=== PATIENT | male | born 1995 | race African-American/Black ===

== ENCOUNTER 2017-12-17 11:14 | Emergency (ER) | payer OTHER ==
[~2017-12-17] VITALS: Ht 193 cm; Wt 79.4 kg
--- NOTE | 2017-12-17 12:05 | Emergency Room Report ---
History of Present Illness General Chief Complaint: Lower Extremity Injury Source: Patient (Roberto Dorado) Present Illness HPI 22-year-old male patient presents ER complaining of left knee pain x1 day. reports that his playing basketball yesterday when he was bumped and suddenly felt his left leg stiffen. Denies feeling or hearing popped. Reports pain with ambulation. Denies hitting his head or lost consciousness. Reports was able to drive to ER. Reports walking with crutches. Reports taking ibuprofen 100 mg relief of pain symptoms. Reports swelling of left knee. Denies other acute symptoms. reports pain worse with leg straightening. (Roberto Dorado) Allergies: Coded Allergies: No Known Allergies (Unverified , 12/17/17) Patient History Past Medical History: see triage record Reviewed Nursing Documentation: PMH: Agreed; PSxH: Agreed (Roberto Dorado) Nursing Documentation-PMH Past Medical History: No Stated History (Roberto Dorado) Review of Systems All Other Systems: negative except mentioned in HPI (Roberto Dorado) Physical Exam Vital Signs Date Time Temp Pulse Resp B/P (MAP) Pulse Ox O2 Delivery O2 Flow Rate FiO2 12/17/17 11:16 97.6 63 18 136/89 97 Room Air 97.5 Sp02 EP Interpretation: reviewed, normal General Appearance: well appearing, no apparent distress, alert, GCS 15, non- toxic Head: normocephalic, atraumatic Eyes: bilateral eye normal inspection, bilateral eye PERRL ENT: hearing grossly normal, normal pharynx, no angioedema, normal voice, uvula midline, moist mucus membranes Neck: full range of motion Respiratory: lungs clear, normal breath sounds, no rhonchi, no respiratory distress, no accessory muscle use, no wheezing, speaking full sentences Cardiovascular #1: regular rate, rhythm, no edema Musculoskeletal: back normal, digits/nails normal, gait/station normal, normal range of motion, non-tender, swelling - left knee, other - negative anterior and posterior drawer, no laxity with varus or valgus stress, tender - left knee (Roberto Dorado) Medical Decision Making PA Attestation Dr. Love is my supervising Physician whom patient management has been discussed with. 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 presents to the ED c/o left knee pain. Ddx considered but are not limited to fracture, sprain, strain, contusion, dislocation. No erythema, no warmth to touch, no fever, nontoxic appearing, low suspicion for septic joint. Vital signs: are WNL, pt. is afebrile Ordered X-ray and pain medication. ER COURSE Provided with pain medication. An X-ray of the left knee shows mild soft tissue swelling, no acute fracture, Hayley-Schlatter per the preliminary reading. Discussed findings with patient, informed patient may be related to Hayley-Schlatter, patient reports known history of disease. Needs outpatient imaging and followup. LUIS FELIPE wrap was applied to the left was checked afterwards by me showing good alignment and support with distal neurovascular functioning intact. Patient has crutches does not need them provided. Patient instructed on RICE method: rest, ice, compression, elevation. Swelling likely causing pain, followup with PCP and ortho to discuss drainage at that time as needed. No erythema, no warmth to touch, patient nontoxic appearing, low suspicion for septic joint. Patient instructed on rest, ice and heat. Patient instructed to be WBAT Followup with primary care provider. Discuss referral to ortho/pain management/ PT as needed. Discuss further imaging with MRI/CT as needed. Provided with contact information for orthopedic urgent care if unable to be seen by PCP and get ortho referral. DISCHARGE: -Rx provided for Ibuprofen for pain symptoms. At this time pt. is stable for d/c to home. Patient is resting comfortably, in no acute distress, nontoxic appearing, talking without difficulty. Will provide printed patient care instructions, and any necessary prescriptions. Patient instructed to follow with primary care provider in 3 - 5 days and to request further follow-up as needed. Care plan and follow up instructions have been discussed with the patient prior to discharge. Take medications as directed. Patient questions asked and answered. Patient reports understanding and agreement to treatment plan. ER precautions given, patient instructed to return to ER immediately for any new or worsening of symptoms. - Please note that this Emergency Department Report was dictated using [employer]ozynelumber loader technology software, occasionally this can lead to erroneous entry secondary to interpretation by the dictation equipment. (Roberto Dorado) Other X-Ray Diagnostic Results Other X-Ray Diagnostic Results : X-Ray ordered: left knee # of Views/Limited Vs Complete: 3 View Indication: Pain EP Interpretation: Yes PA Xray: Interpretation reviewed, by supervising MD, and agrees with findings. Interpretation: no dislocation, no fractures, nonspecific bowel gas, other - soft tissue swelling; Hayley-schlatter Impression: Other - effusion PA Scribe Text Dexter Dorado PA-C (Roberto Dorado) Other X-Ray Diagnostic Results : Electronically Signed by: Scribe documentation reviewed by me and is accurate, Dusty Love MD. (Dusty Love M.D.) Last Vital Signs Date Time Temp Pulse Resp B/P (MAP) Pulse Ox O2 Delivery O2 Flow Rate FiO2 12/17/17 11:16 97.6 63 18 136/89 97 Room Air 97.5 (Roberto Dorado) Disposition: HOME, SELF-CARE Condition: Stable Scripts Ibuprofen* (MOTRIN*) 800 Mg Tablet 800 MG ORAL Q8H, #30 TAB 0 Refills Prov: Roberto Dorado 12/17/17 Patient Instructions: Knee Effusion, [id number] Additional Instructions: Patient instructed to follow up with primary care provider and discuss further referral to orthopedics and physical therapy. Patient instructed on RICE method: rest, ice, compression, elevation. Patient instructed to WBAT. Take medications as directed. Patient questions asked and answered. ER precautions given, patient instructed to return to ER immediately for any new or worsening of symptoms. Roberto Dorado Dec 17, 2017 12:05 Dusty Love M.D. Dec 18, 2017 01:04
[2017-12-17] MEDS ORDERED: Ketorolac 30mg Inj IM ONE (12:15)
[2017-12-17] MEDS ORDERED: IBUPROFEN800 MG ORAL (12:40)
[2017-12-17 12:45] VITALS: BP 132/85
--- NOTE | 2017-12-17 13:28 | Diagnostic Imaging Report ---
Indication: Pain Technique: XRAY Knee 3v LT Comparison: None Findings: There is no acute fracture or dislocation. Some well-corticated ossific densities project adjacent to the tibial tubercle along the patellar tendon insertion. There may be some patellar tendon thickening. Alignment and joint spaces are preserved. No radiopaque foreign body identified. No suprapatellar joint effusion. Impression: No acute fracture. Possible sequela of remote Hayley-Schlatter disease. If there is continued pain, consider nonemergent MRI of the knee as clinically indicated.
== END 2017-12-17 12:45 | disposition home or self-care (01) ==
LOC: EMR 12:25
DX: M25.462 Effusion, left knee (principal); M92.52 Juvenile osteochondrosis of tibia tubercle
CPT/HCPCS: 10060; 73562; 99284; J1885

== ENCOUNTER 2017-12-19 22:03 | Emergency (ER) | payer OTHER ==
[~2017-12-19] VITALS: Ht 193 cm; Wt 79.4 kg
[~2017-12-19 22:03] MED LIST: IBUPROFEN800 MG ORAL
[2017-12-19] MEDS ORDERED: NKM (22:17)
--- NOTE | 2017-12-19 22:39 | Emergency Room Report ---
History of Present Illness General Chief Complaint: Skin Rash/Abscess Source: Patient Present Illness HPI Patient presents with 3 days of swelling and pain in his right anterior thigh. He's had an abscess in the past. He feels this might need to be drained. He denies any fevers or chills. He's taking Motrin at home with some help. Pain rated 6/10, sharp and pressure with some aching. No radiation. Constant. He injured his L knee and was evaluated recently. Scheduled for MRI. H/O Brooten Rubin. No other co-morbidities. 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 Nursing Documentation: PMH: Agreed; PSxH: Agreed Nursing Documentation-PMH Past Medical History: No Stated History Review of Systems Constitutional: Reports: see HPI Musculoskeletal: Reports: see HPI Skin: Reports: see HPI Physical Exam Vital Signs Date Time Temp Pulse Resp B/P (MAP) Pulse Ox O2 Delivery O2 Flow Rate FiO2 12/19/17 22:12 98.2 58 16 121/81 98 Room Air 98.2 Sp02 EP Interpretation: reviewed, normal General Appearance: well appearing, no apparent distress, GCS 15 Head: normocephalic, atraumatic Eyes: bilateral eye normal inspection, bilateral eye PERRL ENT: hearing grossly normal, normal voice, moist mucus membranes Neck: full range of motion, supple Respiratory: no respiratory distress, speaking full sentences Cardiovascular #1: regular rate, rhythm, no edema Cardiovascular #2: 2+ radial (R) Gastrointestinal: normal inspection, scaphoid Musculoskeletal: other - elvi appliance R knee - crutches Neurologic: alert, normal gait, grossly normal Psychiatric: mood/affect normal Skin: other - Abscess right anterior thigh Procedures Incision and Drainage Incision and Drainage : Consent: Verbal Blade Size: 11 I & D Procedure: betadine prep, sterile drapes applied, sterile dressing applied, gauze wick placed Wound Location: lower extremity - L anterior thigh Wound's Depth, Shape: superficial Wound Length (cm): 1 Wound Explored: contaminated - pus expressed Irrigated w/ Saline (ccs): 10 Anesthesia: Lidocaine w/ Epi Patient Tolerated: Well Complications: None Medical Decision Making Diagnostic Impression: Primary Impression: Abscess ER Course Patient presents with an abscess of right anterior thigh. This needs to be incised and drained. In addition to that he needs oral antibiotics. I and D performed and tolerated well. Patient stable for outpatient observation and treatment. Last Vital Signs Date Time Temp Pulse Resp B/P (MAP) Pulse Ox O2 Delivery O2 Flow Rate FiO2 12/19/17 23:16 98.2 16 121/81 98 Room Air 98.2 12/19/17 23:15 61 Status: improved Disposition: HOME, SELF-CARE Condition: Improved Scripts Tramadol Hcl* (ULTRAM*) 50 Mg Tablet 50 MG ORAL Q6H PRN for For Pain, #8 TAB 0 Refills Prov: Dusty Love M.D. 12/19/17 Bacitracin (Bacitracin) 28.4 Gm Oint...g. 1 APPLIC TOPIC BID, #20 GM Prov: Dusty Love M.D. 12/19/17 Trimethoprim/Sulfamethoxazole 160/800* (BACTRIM DS TABLET*) 1 Each Tablet 1 TAB ORAL Q12H, #14 TAB 0 Refills Prov: Dusty Love M.D. 12/19/17 Dusty Love M.D. Dec 19, 2017 22:39
[2017-12-19] MEDS ORDERED: Bactrim-DS 1 tab ORAL ONE (22:45)
[2017-12-19] MEDS ORDERED: Lidocaine 1% 10mg/ml/Epi 0.005mg/ml 30ml vial INJ ONE (22:45)
[2017-12-19] MEDS ORDERED: BACITRACIN15 GM TOPIC (23:13)
[2017-12-19] MEDS ORDERED: BACTRIM DS TAB1 EAC1 ORAL (23:13)
[2017-12-19] MEDS ORDERED: TRAMADOL HCL50 MG ORAL (23:13)
[2017-12-19 23:15] VITALS: BP 122/82
[2017-12-19 23:16] VITALS: BP 121/81
== END 2017-12-19 23:15 | disposition home or self-care (01) ==
LOC: EMR 22:46
DX: L02.415 Cutaneous abscess of right lower limb (principal)
CPT/HCPCS: 10060; 99284

== ENCOUNTER 2018-10-01 03:33 | Emergency (ER) | payer OTHER ==
[~2018-10-01] VITALS: Ht 193 cm; Wt 79.4 kg
[~2018-10-01 03:33] MED LIST changes: +BACITRACIN15 GM TOPIC; +BACTRIM DS TAB1 EAC1 ORAL; +NKM; +TRAMADOL HCL50 MG ORAL
[2018-10-01 03:51] VITALS: BP 120/74
[2018-10-01] MEDS ORDERED: IBUPROFEN600 MG ORAL (03:59)
--- NOTE | 2018-10-01 03:59 | Emergency Room Report ---
History of Present Illness General Chief Complaint: Upper Extremity Injury Source: Patient Present Illness HPI Is a 23-year-old male who is right-hand dominant. He presents with chief complaint of right forearm pain and numbness. He was playing basketball and fell directly into that area. He felt numbness initially. Numbness is improving but he still felt some pain and and weakness. Worse with palpation. No nausea no vomiting. No other injury. Did not hit his head. Allergies: Coded Allergies: No Known Allergies (Unverified , 12/17/17) Patient History Past Medical History: see triage record, old chart reviewed Past Surgical History: none Pertinent Family History: none Social History: Denies: smoking Immunizations: other Reviewed Nursing Documentation: PMH: Agreed; PSxH: Agreed Nursing Documentation-PMH Past Medical History: No Stated History Hx Cardiac Problems: No - torn Meniscus Review of Systems Eye: Denies: eye pain, blurred vision ENT: Denies: ear pain, nose congestion, throat swelling Respiratory: Denies: cough, shortness of breath Cardiovascular: Denies: chest pain, palpitations Gastrointestinal: Denies: abdominal pain, diarrhea, nausea, vomiting Musculoskeletal: Reports: muscle pain, muscle stiffness; Denies: back pain, joint pain Skin: Denies: rash Neurological: Denies: headache, numbness Endocrine: Denies: increased thirst, increased urine Hematologic/Lymphatic: Denies: easy bruising All Other Systems: negative except mentioned in HPI Physical Exam Vital Signs Date Time Temp Pulse Resp B/P (MAP) Pulse Ox O2 Delivery O2 Flow Rate FiO2 10/01/18 03:43 98.2 81 18 120/74 95 Room Air vitals normal Sp02 EP Interpretation: reviewed, normal General Appearance: well appearing, no apparent distress, alert Head: normocephalic, atraumatic Eyes: bilateral eye PERRL, bilateral eye EOMI ENT: hearing grossly normal, normal pharynx Neck: full range of motion, supple, no meningismus Respiratory: chest non-tender, lungs clear, normal breath sounds Cardiovascular #1: regular rate, rhythm, no murmur Gastrointestinal: normal bowel sounds, non tender, no mass, no organomegaly, no bruit, non-distended Musculoskeletal: back normal, gait/station normal, normal range of motion, other - Right forearm: He has tenderness to the proximal forearm on the dorsal aspect near the elbow. Full range of motion. Sensation normal. Neurologic: alert, oriented x3 Psychiatric: mood/affect normal Skin: warm/dry Medical Decision Making Diagnostic Impression: Primary Impression: Contusion of left forearm, initial encounter ER Course Patient with right forearm contusion. No fracture dislocation. We'll discharge home. Other X-Ray Diagnostic Results Other X-Ray Diagnostic Results : X-Ray ordered: Right forearm x-rays # of Views/Limited Vs Complete: 2 View Indication: Pain EP Interpretation: Yes Interpretation: no dislocation, no soft tissue swelling, no fractures Impression: No acute disease Electronically Signed by: Poncho Medina MD Last Vital Signs Date Time Temp Pulse Resp B/P (MAP) Pulse Ox O2 Delivery O2 Flow Rate FiO2 10/01/18 03:51 98.2 18 120/74 95 Room Air 10/01/18 03:43 81 Status: improved Disposition: HOME, SELF-CARE Condition: Stable Scripts Ibuprofen* (MOTRIN*) 600 Mg Tablet 600 MG ORAL THREE TIMES A DAY, #30 TAB 0 Refills Prov: Poncho Medina MD 10/01/18 Additional Instructions: Follow-up with your doctor in 7 days. Return if symptom worsen. Poncho Medina MD Oct 01, 2018 03:59
[2018-10-01 04:19] VITALS: BP 120/74
--- NOTE | 2018-10-01 04:46 | Diagnostic Imaging Report ---
EXAM: XR Right Forearm, 2 Views CLINICAL HISTORY: TRAUMA TECHNIQUE: Frontal and lateral views of the right forearm. COMPARISON: No relevant prior studies available. FINDINGS: Bones/joints: Unremarkable. No acute fracture. No dislocation. Soft tissues: Unremarkable. IMPRESSION: No acute fracture.
== END 2018-10-01 04:20 | disposition home or self-care (01) ==
LOC: EMR 04:10
DX: S50.11XA Contusion of right forearm, initial encounter (principal); W19.XXXA Unspecified fall, initial encounter; Y93.67 Activity, basketball; Y92.9 Unspecified place or not applicable
CPT/HCPCS: 99283

== ENCOUNTER 2018-10-14 15:40 | Emergency (ER) | payer OTHER ==
[~2018-10-14] VITALS: Ht 193 cm; Wt 77.1 kg
[~2018-10-14 15:40] MED LIST changes: +IBUPROFEN600 MG ORAL
[2018-10-14] MEDS ORDERED: NKM (15:46)
[2018-10-14 15:49] VITALS: BP 119/78
[2018-10-14] MEDS ORDERED: Lidocaine 1% MPF 10mg/ml 5ml ONE (16:12)
[2018-10-14] MEDS ORDERED: Lidocaine 2% 20mg/ml/Epi 0.005mg/ml 20ml vial INJ ONE (16:15)
--- NOTE | 2018-10-14 16:22 | Emergency Room Report ---
History of Present Illness General Chief Complaint: Skin Rash/Abscess Source: Medical Record Present Illness HPI 20-year-old male presents to the emergency department complaining of 3 out of 10 in severity pain, swelling, erythema and palpable lump in the left groin area progressive 2 days. Patient denies fevers or chills he denies on tender lymph nodes, penile discharge, testicular pain or swelling. Patient denies history of STI's. Denies recent travel, recent illness or ill contacts. denies blisters, oral lesions, or sloughing of the skin. Allergies: Coded Allergies: No Known Allergies (Unverified , 12/17/17) Patient History Past Medical History: see triage record Past Surgical History: none Pertinent Family History: none Reviewed Nursing Documentation: PMH: Agreed; PSxH: Agreed Nursing Documentation-PMH Past Medical History: No History, Except For Hx Cardiac Problems: No - torn Meniscus Review of Systems All Other Systems: negative except mentioned in HPI Physical Exam Vital Signs Date Time Temp Pulse Resp B/P (MAP) Pulse Ox O2 Delivery O2 Flow Rate FiO2 10/14/18 15:44 98.1 72 18 98 Room Air 10/14/18 15:49 119/78 Sp02 EP Interpretation: reviewed, normal General Appearance: no apparent distress, alert, GCS 15, non-toxic Head: normocephalic, atraumatic Eyes: bilateral eye normal inspection, bilateral eye PERRL ENT: hearing grossly normal, normal voice Neck: full range of motion Respiratory: lungs clear, normal breath sounds, speaking full sentences Cardiovascular #1: regular rate, rhythm Musculoskeletal: back normal, gait/station normal, normal range of motion, non- tender Neurologic: alert, oriented x3, responsive, motor strength/tone normal, sensory intact, speech normal, grossly normal Psychiatric: judgement/insight normal Skin: normal color, no rash, warm/dry, well hydrated, other - 1cm fluctuant Abscess of the left groin Lymphatic: no adenopathy Procedures Incision and Drainage Incision and Drainage : Consent: Verbal Site: Left groin Blade Size: 11 I & D Procedure: betadine prep, sterile drapes applied, sterile dressing applied Wound Location: other - left groin Wound's Depth, Shape: superficial Wound Length (cm): 1 Wound Explored: contaminated - pus expressed Anesthesia: Lidocaine w/ Epi Volume Anesthetic (ccs): 2 Splint Applied?: No Sling Applied?: No Patient Tolerated: Well Complications: None Medical Decision Making PA Attestation Dr. Flores is my supervising Physician whom patient management has been discussed with. Diagnostic Impression: Primary Impression: Abscess ER Course 20-year-old male presents to the emergency department complaining of 3 out of 10 in severity pain, swelling, erythema and palpable lump in the left groin area progressive 2 days. Patient denies fevers or chills he denies on tender lymph nodes, penile discharge, testicular pain or swelling. Patient denies history of STI's. Denies recent travel, recent illness or ill contacts. denies blisters, oral lesions, or sloughing of the skin. Ddx considered but are not limited to cellulitis, abscess, cystic acne, necrotizing fasciitis, insect bite. Vital signs: are WNL, pt. is afebrile H&PE are most consistent with 1cm fluctuant Abscess of the left groin/ ingrown hair. ORDERS: none required at this time, the diagnosis is clinical ED INTERVENTIONS: -I & D. DISCHARGE: At this time pt. is stable for d/c to home. Will provide printed patient care instructions, and any necessary prescriptions. Care plan and follow up instructions have been discussed with the patient prior to discharge. Last Vital Signs Date Time Temp Pulse Resp B/P (MAP) Pulse Ox O2 Delivery O2 Flow Rate FiO2 10/14/18 15:49 98.1 71 18 119/78 98 Room Air Status: improved Disposition: HOME, SELF-CARE Condition: Stable Scripts Doxycycline Hyclate* (VIBRAMYCIN*) 100 Mg Capsule 100 MG ORAL EVERY 12 HOURS for 7 Days, #14 CAP 0 Refills Prov: Padmini Mae 10/14/18 Bacitracin/Polymyxin B Sulfate (BACITRACIN-POLYMYXIN OINTMENT) 28.35 Gm Oint...g. 1 APPLIC TP BID, #28.3 GM Prov: Padmini Mae 10/14/18 Patient Instructions: Abscess Additional Instructions: Take medications as directed. Follow up with a Primary Care Provider in 3-5 days, even if your symptoms have resolved. --Please review list of primary care clinics, if you do not already have a primary care provider Return sooner to ED if new symptoms occur, or current symptoms become worse. - Please note that this Emergency Department Report was dictated using Cake Financialadministrative officer technology software, occasionally this can lead to erroneous entry secondary to interpretation by the dictation equipment. Padmini Mae October 14, 2018 16:22
[2018-10-14] MEDS ORDERED: VIBRAMYCIN100 MG ORAL (16:23)
[2018-10-14] MEDS ORDERED: BACITRACIN-P28.35 GM TP (16:23)
[2018-10-14 16:49] VITALS: BP 122/71
== END 2018-10-14 16:51 | disposition home or self-care (01) ==
LOC: EMR 16:01
DX: L02.214 Cutaneous abscess of groin (principal)
CPT/HCPCS: 10060; 99283

== ENCOUNTER 2018-10-17 16:13 | Emergency (ER) | payer OTHER ==
[~2018-10-17] VITALS: Ht 193 cm; Wt 79.4 kg
[~2018-10-17 16:13] MED LIST changes: +BACITRACIN-P28.35 GM TP; +VIBRAMYCIN100 MG ORAL
--- NOTE | 2018-10-17 16:52 | Emergency Room Report ---
History of Present Illness General Chief Complaint: Allergic Reaction Source: Patient Present Illness HPI 23-year-old male presents to the emergency department requesting change of antibiotic as he believes he is having abnormal reaction to new medication. Patient reports paresthesias he also reports that he had some body aches and after the first day of taking the medication he had a fever. Denies pain at this time. Patient denies rash. Pt. denies chills or swollen tender lymph nodes. Denies swelling of the lips, tongue , throat or airway. Denies wheezing, or shortness of breath. Denies recent travel, recent illness or ill contacts. denies blisters, oral lesions, or sloughing of the skin. He was taking doxycycline for recently I&D'd groin abscess. Allergies: Coded Allergies: No Known Allergies (Unverified , 12/17/17) Patient History Past Medical History: see triage record Past Surgical History: none Pertinent Family History: none Immunizations: UTD Reviewed Nursing Documentation: PMH: Agreed; PSxH: Agreed Nursing Documentation-PMH Past Medical History: No History, Except For Hx Cardiac Problems: No - torn Meniscus Review of Systems All Other Systems: negative except mentioned in HPI Physical Exam Vital Signs Date Time Temp Pulse Resp B/P (MAP) Pulse Ox O2 Delivery O2 Flow Rate FiO2 10/17/18 16:17 98.1 66 16 98 Room Air Sp02 EP Interpretation: reviewed, normal General Appearance: no apparent distress, alert, GCS 15, non-toxic Head: normocephalic, atraumatic Eyes: bilateral eye normal inspection, bilateral eye PERRL ENT: hearing grossly normal, no angioedema, normal voice, other - no swelling of the lips or tongue, no stridor. Neck: full range of motion Respiratory: lungs clear, normal breath sounds, no respiratory distress, no wheezing, speaking full sentences Cardiovascular #1: regular rate, rhythm Musculoskeletal: back normal, gait/station normal, normal range of motion, non- tender Neurologic: alert, oriented x3, responsive, motor strength/tone normal, sensory intact, speech normal, grossly normal Psychiatric: judgement/insight normal Skin: normal color, no rash, warm/dry, well hydrated Lymphatic: no adenopathy Medical Decision Making PA Attestation Dr. arias is my supervising Physician whom patient management has been discussed with. Diagnostic Impression: Primary Impression: Medication changed to therapeutic equivalent Additional Impression: Paresthesias ER Course 23-year-old male presents to the emergency department requesting change of antibiotic as he believes he is having abnormal reaction to new medication. Patient reports paresthesias he also reports that he had some body aches and after the first day of taking the medication he had a fever. Denies pain at this time. Patient denies rash. Pt. denies chills or swollen tender lymph nodes. Denies swelling of the lips, tongue , throat or airway. Denies wheezing, or shortness of breath. Denies recent travel, recent illness or ill contacts. denies blisters, oral lesions, or sloughing of the skin. He was taking doxycycline for recently I&D'd groin abscess. Ddx considered but are not limited to cellulitis, allergic reaction, angio edema , abscess, anaphylaxis just to name a few. Vital signs: are WNL, pt. is afebrile H&PE are most consistent with abnormal sensations/effects, low suspicion for being secondary to Doxycycline, however will change medications. suspect pt. may be coming down with a viral syndrome. ORDERS: none required at this time, the diagnosis is clinical ED INTERVENTIONS: none required at this time. DISCHARGE: At this time pt. is stable for d/c to home. Will provide printed patient care instructions, and any necessary prescriptions. Care plan and follow up instructions have been discussed with the patient prior to discharge. Last Vital Signs Date Time Temp Pulse Resp B/P (MAP) Pulse Ox O2 Delivery O2 Flow Rate FiO2 10/17/18 16:17 98.1 66 16 98 Room Air Disposition: HOME, SELF-CARE Condition: Stable Scripts Cephalexin* (KEFLEX*) 500 Mg Capsule 500 MG ORAL EVERY 12 HOURS for 7 Days, #14 CAP 0 Refills Prov: Padmini Mae 10/17/18 Patient Instructions: Medical Screening Exam Additional Instructions: Take medications as directed. Follow up with a Primary Care Provider in 3-5 days, even if your symptoms have resolved. Return sooner to ED if new symptoms occur, or current symptoms become worse. - Please note that this Emergency Department Report was dictated using [employer] payables clerk technology software, occasionally this can lead to erroneous entry secondary to interpretation by the dictation equipment. Padmini Mae October 17, 2018 16:52
[2018-10-17] MEDS ORDERED: CEPHALEXIN500 MG ORAL (16:53)
--- NOTE | 2018-10-17 17:20 | NUR ---
ER DISCHARGE NOTE: Patient is cleared to be discharged per ERMD, pt is aox4, on room air, with stable vital signs. pt was given dc and prescription instructions, pt was able to verbalize understanding, pt is able to ambulate with steady gait. pt took all belongings.
[2018-10-17 17:32] VITALS: BP 118/73
[2018-10-17 17:33] VITALS: BP 118/73
== END 2018-10-17 17:00 | disposition home or self-care (01) ==
LOC: EMR 16:55
DX: R20.2 Paresthesia of skin (principal)
CPT/HCPCS: 99282

== ENCOUNTER 2018-12-05 11:21 | Emergency (ER) | payer OTHER ==
[~2018-12-05] VITALS: Ht 193 cm; Wt 79.4 kg
[~2018-12-05 11:21] MED LIST changes: +CEPHALEXIN500 MG ORAL
[2018-12-05 11:40] VITALS: BP 118/79
--- NOTE | 2018-12-05 11:41 | NUR ---
ED Nurse Note:pt. came with c/o sore throat, no fever noted
[2018-12-05] MEDS ORDERED: AMOXICILLIN500 MG ORAL (11:52)
[2018-12-05] MEDS ORDERED: IBUPROFEN600 MG ORAL (11:52)
[2018-12-05 12:00] VITALS: BP 115/86
--- NOTE | 2018-12-05 12:00 | NUR ---
ER DISCHARGE NOTE: Patient is cleared to be discharged per ERMD, pt is aox4, on room air, with stable vital signs. pt was given dc and prescription instructions, pt was able to verbalize understanding, pt id band removed. pt is able to ambulate with steady gait. pt took all belongings.
--- NOTE | 2018-12-05 15:25 | Emergency Room Report ---
History of Present Illness General Chief Complaint: Sore Throat Source: Patient Present Illness HPI 23-year-old male presents ED for evaluation. Complaining of sore throat. Has been going on for 2 weeks but not getting better. Denies cough. Denies fevers or chills. Pain is throbbing, 7 out of 10, nonradiating. No other aggravating relieving factors. Denies any other associated symptoms Allergies: Coded Allergies: No Known Allergies (Unverified , 12/17/17) Patient History Past Medical History: none Past Surgical History: none Pertinent Family History: none Social History: Denies: smoking, alcohol use, drug use Immunizations: UTD Reviewed Nursing Documentation: PMH: Agreed; PSxH: Agreed Nursing Documentation-PMH Past Medical History: No Stated History Hx Cardiac Problems: No - torn Meniscus Review of Systems All Other Systems: negative except mentioned in HPI Physical Exam Vital Signs Date Time Temp Pulse Resp B/P (MAP) Pulse Ox O2 Delivery O2 Flow Rate FiO2 12/05/18 11:23 98.2 66 16 118/79 (92) 99 Room Air Sp02 EP Interpretation: reviewed, normal General Appearance: no apparent distress, alert, GCS 15, non-toxic Head: normocephalic Eyes: bilateral eye normal inspection, bilateral eye PERRL ENT: hearing grossly normal, no angioedema, normal voice, TMs + canals normal, uvula midline, pharyngeal erythema, tonsillar exudate Neck: full range of motion, supple, no meningismus, supple/symm/no masses Respiratory: normal inspection Cardiovascular #1: normal inspection Gastrointestinal: normal inspection Rectal: deferred Genitourinary: no CVA tenderness Musculoskeletal: normal inspection Neurologic: alert, oriented x3, responsive, motor strength/tone normal, sensory intact, speech normal Psychiatric: normal inspection Skin: normal color Lymphatic: normal inspection Medical Decision Making Diagnostic Impression: Primary Impression: Tonsillitis ER Course Hospital Course 23year-old male presents to ED complaining of sore throat Differential diagnoses include: URI, pharyngitis, otitis media Clinical course Patient placed on stretcher. After initial history, physical exam reveals a young male in no acute distress. Bilateral TM unremarkable. There is pharyngeal erythema w/ tonsillar swelling/exudates. No lymphadenopathy. Clinical findings consistent with tonsillitis discussed findings with patient. Safe for discharge with close outpatient follow-up states he has a PMD Diagnosis - tonsillitis Stable and discharged home with prescriptions for Motrin, amoxicillin. Instructed to followup with PMD. return to ED if symptoms recur or worsen Last Vital Signs Date Time Temp Pulse Resp B/P (MAP) Pulse Ox O2 Delivery O2 Flow Rate FiO2 12/05/18 12:00 98.5 69 19 115/86 100 Room Air Status: improved Disposition: HOME, SELF-CARE Condition: Stable Scripts Ibuprofen* (MOTRIN*) 600 Mg Tablet 600 MG ORAL Q8H PRN for For Pain, #30 TAB 0 Refills Prov: Tay Win MD 12/05/18 Amoxicillin* (AMOXIL*) 500 Mg Capsule 500 MG ORAL THREE TIMES A DAY, #21 CAP Prov: Tay Win MD 12/05/18 Referrals: [facility],REFERRING (PCP) Patient Instructions: Tonsillitis, [id number] Tay Win MD Dec 05, 2018 15:25
== END 2018-12-05 12:00 | disposition home or self-care (01) ==
LOC: EMR 11:50
DX: J03.90 Acute tonsillitis, unspecified (principal)
CPT/HCPCS: 99282

== ENCOUNTER 2019-01-26 20:55 | Emergency (ER) | payer OTHER ==
[~2019-01-26] VITALS: Ht 193 cm; Wt 79.4 kg
[~2019-01-26 20:55] MED LIST changes: +AMOXICILLIN500 MG ORAL
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
[2019-01-26] MEDS ORDERED: IBUPROFEN600 MG ORAL (22:13)
[2019-01-26 22:16] VITALS: BP 118/78
--- NOTE | 2019-01-26 22:16 | NUR ---
ER DISCHARGE NOTE: Patient is cleared to be discharged per ERMD, pt is aox4, on room air, with stable vital signs. pt was given dc and prescription instructions, pt was able to verbalize understanding, pt id band removed without complications. pt is able to ambulate with steady gait. pt took all belongings.
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
--- NOTE | 2019-01-27 16:39 | Diagnostic Imaging Report ---
Indications: Reason For Exam: PAIN Technique: Three views of the right knee Comparison: None Findings: No acute fractures. No dislocations. Joint spaces are preserved. No radiopaque foreign body. Normal mineralization. Impression: No acute process As agrees ER prelim
== END 2019-01-26 22:20 | disposition home or self-care (01) ==
LOC: EMR 21:22
DX: S89.91XA Unspecified injury of right lower leg, initial encounter (principal); V43.52XA Car driver injured in collision with other type car in traffic accident, initial encounter; Y92.410 Unspecified street and highway as the place of occurrence of the external cause
CPT/HCPCS: 99283